=== PATIENT | female | born 1965 | race Caucasian/White ===

== ENCOUNTER 2018-03-03 09:34 | Emergency (ER) | payer MEDICARE ==
[~2018-03-03] VITALS: Ht 162.5 cm; Wt 71.2 kg
[2018-03-03] MEDS ORDERED: ZYRTEC10 MG PO (09:50)
[2018-03-03] MEDS ORDERED: OMNICEF300 MG PO (09:50)
[2018-03-03] MEDS ORDERED: DIFLUCAN150 MG PO (09:50)
== END 2018-03-03 10:06 | disposition home or self-care (01) ==
LOC: ED 09:34
DX: H66.91 Otitis media, unspecified, right ear (principal); Z88.8 Allergy status to other drugs, medicaments and biological substances